=== PATIENT | male | born 1970 | race Asian ===

== ENCOUNTER 2017-02-17 11:41 | Emergency (ER) | payer OTHER ==
[2017-02-17 12:39] LABS: Prothrombin Time 21.2 SEC (12.0-14.7)
[2017-02-17 12:40] LABS: PTT 33.7 SEC (22.9-36.1)
[2017-02-17 12:51] LABS: ALT (SGPT) 24 U/L (8-55); AST (SGOT) 67 U/L (5-34); Acetaminophen Less than 6.0 mcg/mL (10.0-30.0); Alkaline Phosphatase 137 U/L (40-150); Anion Gap 10 mmol/L (10-20); BUN (Urea Nitrogen) 7 mg/dL (8.9-20.6); Bilirubin, Total 7.7 mg/dL (0.2-1.2); Calc. Creatinine Clearance 0 mL/min (70-130); Calcium 8.2 mg/dL (7.8-10.44); Carbon Dioxide 26 mmol/L (22-29); Chloride 104 mmol/L (98-107); Estimated GFR-MDRD Greater than 90; Globulin 4.9 g/dL (2.4-3.5); Lipase 68 U/L (8-78); Magnesium 1.3 mg/dL (1.6-2.6); Protein, Total 7.3 g/dL (6.0-8.3); Salicylate Less than 8.0 mg/dL (15.0-30.0)
[2017-02-17 13:02] LABS: Band 1 % (5-11); Hematocrit 31.8 % (42.0-52.0); Macrocytosis MODERATE=16-30 cells (100X) (0-5/hpf); Mean Platelet Volume 9.2 fL (7.4-10.4); Neutrophil 61 % (42-75); Reactive Lymphocytes 1 % (0-10); Red Blood Cell (RBC) Count 2.83 mill/uL (4.70-6.10); Target Cells SLIGHT = 2-5 cells (100X) (0-1/hpf); White Blood Cell (WBC) Count 5.3 thou/uL (4.8-10.8)
--- NOTE | 2017-02-17 13:27 | RAD ---
FRONTAL RADIOGRAPH CHEST THREE VIEWS LEFT RIBS: DATE: 02/17/17. COMPARISON: None. HISTORY: Fall 2 weeks ago, pain. FINDINGS: Frontal radiograph chest demonstrates no pneumothorax, pleural fluid, focal consolidation, or alveola r edema. Three-view examination of the left ribs demonstrates no acute displaced left-sided rib fracture. IMPRESSION: No radiographic evidence of acute cardiopulmonary disease. No displaced left-sided rib fracture is n oted. POS: [facility]
== END 2017-02-17 14:39 | disposition left against medical advice (07) ==
LOC: SCSER 11:41
DX: K70.31 Alcoholic cirrhosis of liver with ascites (principal); K70.11 Alcoholic hepatitis with ascites; R60.0 Localized edema; R07.81 Pleurodynia; F17.210 Nicotine dependence, cigarettes, uncomplicated; W18.09XA Striking against other object with subsequent fall, initial encounter
CPT/HCPCS: 80053; 80307; 82140; 83690; 83735; 85025; 85610; 85730; 99406

== ENCOUNTER 2017-02-18 11:49 | Inpatient (IN) | payer OTHER ==
[2017-02-18] MEDS ORDERED: ISOVUE-370 76%-LOCM 1 ML ONE (13:13)
[2017-02-18 13:34] LABS: PTT 34.3 SEC (22.9-36.1); Prothrombin Time 21.9 SEC (12.0-14.7)
[2017-02-18 13:41] LABS: Hematocrit 34.3 % (42.0-52.0); Mean Platelet Volume 7.9 fL (7.4-10.4); Red Blood Cell (RBC) Count 2.84 mill/uL (4.70-6.10); White Blood Cell (WBC) Count 5.7 thou/uL (4.8-10.8)
[2017-02-18 13:44] LABS: Lactic Acid - Sepsis 1.5 mmol/L (0.5-2.2)
[2017-02-18 13:50] LABS: ALT (SGPT) 21 U/L (8-55); AST (SGOT) 65 U/L (5-34); Alkaline Phosphatase 155 U/L (40-150); Anion Gap 7 mmol/L (10-20); BUN (Urea Nitrogen) 6 mg/dL (8.9-20.6); Bilirubin, Total 6.7 mg/dL (0.2-1.2); CK (CPK) 141 U/L (30-200); Calc. Creatinine Clearance 0 mL/min (70-130); Calcium 7.9 mg/dL (7.8-10.44); Carbon Dioxide 28 mmol/L (22-29); Chloride 103 mmol/L (98-107); Estimated GFR-MDRD Greater than 90; Globulin 4.9 g/dL (2.4-3.5); Lipase 51 U/L (8-78); Protein, Total 7.2 g/dL (6.0-8.3)
[2017-02-18 13:54] LABS: Troponin I 0.012 ng/mL (< 0.028)
[2017-02-18 13:59] LABS: Band 2 % (5-11); Neutrophil 64 % (42-75)
[2017-02-18] MEDS ORDERED: hydrALAZINE 20 MG/ML VIAL SLOW IVP PRN (14:45)
--- NOTE | 2017-02-18 14:49 | CT ---
CT ABDOMEN AND PELVIS WITH CONTRAST: Technique: Multiple axial tomograms were obtained through the abdomen and pelvis with IV enhancement. History: Ascites. Comparison: None. FINDINGS: Lung bases are clear. Liver is slightly heterogeneous. The liver margins are mildly irregular which suggest changes of cirr hosis. A small low density lesion in the posterior right lobe of the liver measuring approximately 7 mm suggests a small hepatic cyst. There is a more focal area of low attenuation in the left lobe of the liver measuring 2.6 cm. This fo jean marie area of low density is indeterminate. Neoplasm cannot be excluded. Spleen is upper normal size measuring 12 cm. Pancreas is unremarkable. Numerous radiopaque gallstones are seen layering dependently in the gallbladder. There is moderate ascites seen in all quadrants of the abdomen. Adrenal glands and kidneys unremarkable. Small bowel loops normal caliber. Colon is unremarkable. Aorta is normal caliber. Nonspecific paraaortic lymph nodes are seen throughout the abdomen. These ar e increased in number but are nonspecific in size measuring up to 1.0 cm. There is an umbilical hernia noted with hernia sac measured at 3 cm. IMPRESSION: 1. Moderate ascites in all quadrants of the abdomen. 2. Liver is mildly heterogeneous with irregular margins suggesting changes of cirrhosis. 3. There is an ill-defined low density in the left lobe of the liver measuring up to 2.6 cm. Neoplasm is not excluded. This will need further workup. 4. Evidence of a tiny cyst in the posterior right lobe of the liver. 5. Cholelithiasis. 6. Portal hypertension with recanalized venous structures along the course of the umbilical vein. 7. Small umbilical hernia. POS: [facility]
[2017-02-18] MEDS ORDERED: Acetaminophen 325 MG TAB PO PRN (15:48)
[2017-02-18] MEDS ORDERED: Bisacodyl 5 MG TAB PO PRN (15:48)
[2017-02-18] MEDS ORDERED: Ondansetron ODT 4 MG TAB PO PRN (15:48)
[2017-02-18] MEDS ORDERED: Furosemide 20 MG/2 ML VIAL SLOW IVP SCH (16:00)
[2017-02-18 16:15] VITALS: BMI 28.8
[2017-02-18 16:45] LABS: Bilirubin, Direct 4.1 mg/dL (0.1-0.3); Bilirubin, Total 7.1 mg/dL (0.2-1.2); Magnesium 1.3 mg/dL (1.6-2.6); Phosphorus 2.5 mg/dL (2.3-4.7)
--- NOTE | 2017-02-18 16:57 | RAD ---
UPRIGHT PORTABLE CHEST ONE VIEW 02/18/17 HISTORY: 46-year-old with followup ascites, ASE protocol. FINDINGS/IMPRESSION: Heart size is within normal limits. The lungs are clear. No confluent pneumonia, overt edema, or pleu ral effusion. Stable appearance from 02/17/17. POS: [facility]
[2017-02-18 17:00] LABS: Bilirubin Small (Negative); Blood, Urine Negative (Negative); Glucose, Urine (Dipstick) Negative (Negative); Ketone, Urine Negative (Negative); Nitrite Negative (Negative); Protein, Urine (Dipstick) Negative (Neg-Trace)
[2017-02-18 17:04] LABS: Bacteria/HPF None Seen HPF (None Seen); Hyaline Casts/LPF 0-3 HYALINE CAST LPF (0-3 Hyaline); RBC/HPF 0-3 HPF (0-3); Squamous Epithelial None Seen HPF (0-3); WBC/HPF None Seen HPF (0-3)
[2017-02-18] MEDS ORDERED: Magnesium Oxide 400 MG TAB PO SCH (18:30)
--- NOTE | 2017-02-18 19:12 | PDOC.EVN ---
Event Note - Event Note Event Note: Attedning H&P. I personally evaluated the patient and discussed the management with Dr. Rojas. I have reviewed the written H&P and it is repeated by me. I agree with the History, Examination, Assessment and Plan documented above with any addition or exceptions noted below. Clinical diagnosis of alcoholic liver cirrhosis. With elevated INR, will give Vit K, and plan for diagnostic and therapeutic paracentesis with IR tomorrow. Patient reports a mainly alcohol based diet. [employer] Mate to see tomorrow. 2 days since last alcohol drink, At risk for CT and seizure. Prophylactic benzo regimen ordered. Appreciate GI input for care plan. No clinical suspicion of SBP. Patietn ahs elevated BP. PRN meds ordered. Mr Bosch and his concur with plan.
[2017-02-18] MEDS: Famotidine 20 MG TAB PO SCH (19:51)
--- NOTE | 2017-02-18 22:06 | HP-2 ---
CODE STATUS: FULL. PRIMARY CARE PHYSICIAN: Marla martines. ATTENDING: Paco Begum M.D. RESIDENT: Ernesto Rojas MD CHIEF COMPLAINT: Edema. HISTORY OF PRESENT ILLNESS: This is a 46-year-old male with no past medical history, presents for edema. States he has had at least 15-pound weight gain in the last 3 weeks. He notes at least a 2-year history of yellow sclerae. He also notes some swelling in his abdomen and his legs. He has no pain at all. His has noticed loss of muscle mass and abdominal distention. The patient has not seen a doctor regularly. The patient notes he has had a fall that prompted his ED visit yesterday and refused to have admission at that time and then thought better of it and came back in for admission today. He has no other complaints at this time. In the ER, he was given nothing, just had lab tests drawn. PAST MEDICAL HISTORY: Shows alcohol abuse with suspected alcohol cirrhosis and glaucoma. PAST SURGICAL HISTORY: None. ALLERGIES: No known drug allergies. MEDICATIONS: None. FAMILY HISTORY: Alcoholism in his father. SOCIAL HISTORY: Currently he is half a pack a day smoker for at least 25 years. He is also an everyday drinker. He drinks 7-8 beers daily. He has been doing that for at least 20 years. He denies any drug use. REVIEW OF SYSTEMS: General: No fevers or chills. He does admit to a 15-pound weight gain in the last 3 weeks. One episode of night sweats 6 months ago. No fatigue. Eyes: He has had some vision changes. He does have a diagnosis of glaucoma. ENT: No nasal congestion, rhinorrhea, or sore throat. Respiratory: No cough, congestion, shortness of breath, or exercise intolerance. Cardiovascular: No chest pain or palpitation. He does admit to edema, especially in his abdomen and lower extremities. Gastrointestinal: No nausea, vomiting, diarrhea, or constipation. He does admit abdominal pain, more of a pressure type pain from the abdominal distention. Genitourinary: Denies incontinence, dysuria, polyuria, or discharge. Skin: Denies any rashes. He does admit to jaundice and to the lesions especially on his lower extremities that they have changed color as far as being more dark. Musculoskeletal: No pain, tenderness, stiffness, or swelling to any joints. Neurologic: No weakness, numbness, syncope, or seizure. Psychiatric: No anxiety or depression. PHYSICAL EXAMINATION: VITAL SIGNS: BP was 179/110, pulse is 82, respirations 16, temperature max 98.5 , pulse oximetry 97% on room air, current weight is 99 kg. GENERAL: He is alert and oriented x4. He is appropriately interactive. EYES: PERRLA. He did have scleral icterus. ENT: Tympanic membranes pearly dow without bulging or erythema. Nasal mucosa within normal limits. He did have sublingual jaundice present in his oropharynx. NECK: Supple. No lymphadenopathy, no thyromegaly. He does have a hepatojugular reflex was positive. CARDIOVASCULAR: Regular rate and rhythm. No murmurs, no gallops. Radial pulses were present. Pedal pulses were not able to be felt from his edema. RESPIRATORY: Normal effort, no retractions. CHEST: Lungs clear to auscultation bilaterally. SKIN: Warm and dry. No cyanosis. He does have bilateral lower extremity lesions, worse on his left than his right, looks like venous dermatitis changes. ABDOMEN: Soft, nontender to palpation. Bowel sounds are present x4. There was significant distention present on exam. EXTREMITIES: No clubbing or cyanosis. He does have pitting edema 2+ up to his knees. MUSCULOSKELETAL: Structure, tone, muscle strength, and range of motion within normal limits. NEUROLOGIC: No focal neurologic deficits. Sensation within normal limits. Cranial nerves II through XII grossly intact. GCS of 15. PSYCHIATRIC: Appropriate. LABORATORY DATA: He had white blood cell 5.7, platelet count 82, hemoglobin 11.3, hematocrit 34.3, MCV 121. CK 141, CK-MB 2.4, troponin I of 0.012. Sodium was 134, potassium 4.0, chloride 103, bicarbonate 28, BUN 6, creatinine 0.68, glucose 99, calcium 7.9, total protein 7.2, albumin 2.3, total bilirubin 6.7, AST was 65, ALT 21, alkaline phosphatase 155. Lactate was 1.5. PTT 34.3, PT was 21.9, INR was 1.8. Lipase was 51. His EKG showed normal sinus rhythm with a prolonged QTC of 499. Chest x-ray showed no acute pulmonary process or rib fractures. He did also have a CT scan of his abdomen that showed moderate ascites in all quadrants of the abdomen, liver is mildly heterogeneous with irregular margins suggesting changes of cirrhosis. There is an ill-defined low density in the left lobe of the liver measuring up to 2.6 cm. Neoplasm is not excluded. Evidence of tiny cysts in the posterior right lobe of the liver, cholelithiasis, portal hypertension with recanalized venous structures along the course of the umbilical vein and a small umbilical hernia. ASSESSMENT AND PLAN: A 46-year-old male presents with: 1. Suspected cirrhosis, history of alcoholism. We are going to consider paracentesis and albumin repletion. We will get a GI consult with Dr. Jordan. We appreciate his recommendations. We are going to consider diuresis with Lasix , strict I's and O's, get daily weights. We also have HIV, hepatitis panel, RPR , magnesium, phosphate, and iron studies pending. 2. Pancytopenia secondary to #1. Same as above. 3. Glaucoma. We will consider an Ophthalmology consult or continue his home medications if he is taking any. 4. Undiagnosed hypertension. We will put him on hydralazine p.r.n. for systolic blood pressures greater than 180 and then we will consider long-term therapy once we know what the definitive treatment option is for him. 5. Alcohol abuse. We will put him on the ZEENAT protocol going forward and monitor for signs and symptoms of withdrawal or delirium tremens. Disposition and length of hospital stay will be medical and 2 midnights. Symptomatic medications will be provided. History and physical exam as well as management has been discussed with Dr. Rodríguez. LILLIAM
--- NOTE | 2017-02-19 02:23 | CON ---
DATE OF CONSULTATION: 02/18/2017 REASON FOR CONSULTATION: Ascites, new-onset cirrhosis. CONSULTING PHYSICIAN: Ernesto Rojas MD HISTORY OF PRESENT ILLNESS: Patient is a 46-year-old male with past medical history of glaucoma, presenting with complaint of increased abdominal distention and lower extremity edema. He states that approximately 3 months ago , he began to have increased pedal edema as well as progressively worsening of abdominal distention, this has progressively worsened over the same time. To now include significant abdominal distention along with significant lower extremity edema. He did say that he fell down last week while active prompting admission to see his local primary care physician and during his evaluation was noted to have significantly deranged labs as well as the physical stigmata concerning for cirrhosis. At which point, he was admitted to [facility] for further evaluation. At the current point in time, he also endorses easy bleeding when brushing his teeth as well as intermittently having small pools of blood seen on his pillow upon waking in the morning. He currently denies any nausea, vomiting, fevers, chills, shortness of breath, odynophagia, dysphagia, hematemesis, hematochezia, melena, or encephalopathy. OUTPATIENT MEDICATIONS: None. INPATIENT MEDICATIONS: Reviewed. PAST MEDICAL HISTORY: As per HPI. PAST SURGICAL HISTORY: None. FAMILY HISTORY: Liver disease (father), heart disease, ovarian cancer (mother). SOCIAL HISTORY: Smokes approximately one half pack per day, drinks 7-8 of 16 ounce beers daily. Denies any illicit drug use. PHYSICAL EXAMINATION: VITAL SIGNS: Temperature 98.7, pulse 95, blood pressure 186/101, respiratory rate 16, satting 98% on room air. GENERAL: No acute distress, alert and oriented x4. NECK: Supple. No discernible JVD. CARDIOVASCULAR: Regular rate and rhythm with no discernible murmurs, gallops, or rubs. RESPIRATORY: Clear to auscultation bilaterally with no discernible wheezes or rales. ABDOMEN: Normoactive bowel sounds. Significant abdominal distention that is not taut to palpation. No tenderness to palpation. Umbilical hernia noted with no ulceration of the hernia itself. No caput medusae seen. EXTREMITIES: 2+ pitting edema noted up to the knees bilaterally. No cyanosis or clubbing. NEUROLOGIC: No focal motor or sensory deficit noted. LABORATORY DATA: CBC with white count of 5.7, hemoglobin of 11.3, hematocrit 34.3, platelets 82. Chemistry: Sodium 134, potassium 4.0, chloride 103, carbon dioxide 28, BUN 6, creatinine 0.68, glucose 99. INR 1.8. AST 65, ALT 21 , alkaline phosphatase 155, total bilirubin 6.7, albumin 2.3. APRI score 2.0. FIB-4 score 7.61, MELD score 23. IMAGING: Chest x-ray obtained on 02/18/2017 showing no acute cardiopulmonary abnormalities. CT abdomen and pelvis obtained on 02/18/2017 showing a 7-mm hepatic cyst in the posterior right lobe. Also a 2.6-cm area of hypoattenuation in the left lobe of the liver. Cholelithiasis also noted along with irregular margins of the liver suggesting cirrhosis. Moderate ascites also seen. ASSESSMENT AND PLAN: Patient is a 46-year-old gentleman with a past medical history of glaucoma presenting with increased lower extremity edema, new formation of ascites, and imaging consistent with liver cirrhosis. Liver cirrhosis patient is presenting with a diagnosis of cirrhosis based on cirrhotic morphology on imaging, presence of ascites on physical examination and imaging, lower extremity edema, and thrombocytopenia along with elevated APRI, FIB-4, and MELD scores consistent with a diagnosis of cirrhosis. Currently with decompensated disease with a MELD score of 23 and Keli Avila classification C, indicative of significant liver dysfunction. At this time, the most likely etiology for the diagnosis of cirrhosis is chronic alcohol abuse, although other etiologies have not been ruled out at this time. No stated history of encephalopathy, variceal bleeding or SBP. However, on CT obtained today, he does have two lesions within the liver, one consistent with a simple hepatic cyst, but the other a 2.6-cm area of hypoattenuation within the left lobe of the liver concerning for possible hepatocellular carcinoma and will need further characterization. No EGDs in the system diagnostic for presence of esophageal varices. PLAN: 1. Would obtain diagnostic paracentesis to evaluate for SAAG ratio along with possible SBP. Will need ascitic albumin, total protein, and culture/gram stain 2. Transfer patient from Lasix to spironolactone 50 mg daily for diuresis. 3. Strongly encourage alcohol cessation with placing patient on CIWA protocol for possible withdrawal from alcohol. 4. Would obtain daily CBC, INR, and neuro checks for evaluation of hepatic decompensation. 5. Would obtain a CT three-phase examination for further characterization of the left hepatic lobe liver lesion. 6. Patient will need an EGD as an outpatient for evaluation of possible esophageal varices. 7. Would place patient on a low-sodium, high-protein diet. MTDD
[2017-02-19 04:40] LABS: Prothrombin Time 23.2 SEC (12.0-14.7)
[2017-02-19 05:00] LABS: ALT (SGPT) 19 U/L (8-55); AST (SGOT) 55 U/L (5-34); Alkaline Phosphatase 116 U/L (40-150); Anion Gap 9 mmol/L (10-20); BUN (Urea Nitrogen) 6 mg/dL (8.9-20.6); Calc. Creatinine Clearance 224 mL/min (70-130); Calcium 7.6 mg/dL (7.8-10.44); Carbon Dioxide 24 mmol/L (22-29); Chloride 106 mmol/L (98-107); Estimated GFR-MDRD Greater than 90; Globulin 4.3 g/dL (2.4-3.5); Protein, Total 6.3 g/dL (6.0-8.3)
[2017-02-19 05:03] LABS: Band 3 % (5-11); Hematocrit 31.5 % (42.0-52.0); Macrocytosis MODERATE=16-30 cells (100X) (0-5/hpf); Mean Platelet Volume 7.6 fL (7.4-10.4); Neutrophil 54 % (42-75); Red Blood Cell (RBC) Count 2.62 mill/uL (4.70-6.10); White Blood Cell (WBC) Count 5.8 thou/uL (4.8-10.8)
--- NOTE | 2017-02-19 06:04 | PDOC.FM ---
- Objective Vital Signs & Weight: Vital Signs (12 hours) Temp Pulse Resp BP Pulse Ox 02/19/17 00:00 99.5 F 83 16 161/87 H 98 02/18/17 20:00 98.7 F 95 16 147/84 H 98 I&O: 02/17/17 02/18/17 02/19/17 06:59 06:59 06:59 Intake Total 840 Output Total 950 Balance -110 Result Diagrams: 02/19/17 04:10 02/19/17 04:10 Dx/Plan (1) Alcoholic cirrhosis of liver with ascites Code(s): K70.31 - ALCOHOLIC CIRRHOSIS OF LIVER WITH ASCITES Status: Acute Plan: -Current MELD score 23 -Child-Avila classification of C -Dr. Morataya, GI consulted and appreciate his recs -Await findings from Paracentesis -Consider [address] scan to evaluate liver mass -Will need EGD as outpatient -Will trend labs -Will continue Diuresis with Spironolactone (2) Alcohol abuse Code(s): F10.10 - ALCOHOL ABUSE, UNCOMPLICATED Status: Acute Plan: -20+ years of abuse -Counseled on quitting -Placed on ASE protocol for withdrawal. - Plan Plan: Will follow GI recs
[2017-02-19] MEDS: Spironolactone 25 MG TAB PO SCH ×2 (08:11→10:47)
[2017-02-19] MEDS: Famotidine 20 MG TAB PO SCH ×3 (08:12→20:48)
[2017-02-19] MEDS ORDERED: Lidocaine 1% PF 5 ML VIAL ONE (09:44)
--- NOTE | 2017-02-19 11:30 | ADD-PRG ---
DATE OF SERVICE: 02/19/2017 This is an addendum to the note of Dr. Ernesto Rojas. Mr. Bosch is a 46-year-old patient with no prior history of significant illnesses. He was admitted w ith ascites, peripheral edema and a stigmata of cirrhosis. Initial history and lab findings consiste nt with probable alcoholic cirrhosis. We will have paracentesis performed by IR later today to deter mine the nature of the ascitic fluid as well as to rule out SBP. We have reinstituted treatments wit h spironolactone and I suggested that we perhaps later add Lasix. We have also consulted Dr. Rafia sepulveda the GI Service and appreciate his recommendations.
--- NOTE | 2017-02-19 11:53 | ULT ---
ULTRASOUND GUIDED PARACENTESIS: Date: 02-19-17 History: New onset ascites, probable cirrhosis. Technique: After informed consent was obtained, the patient was placed on the sonography table in the supine pos ition. Limited sonographic evaluation of the abdomen was performed. Appropriate access site was local ized in the mid axillary line right upper quadrant. The area was marked and then meticulously prepped and draped in the usual sterile fashion. Skin and subcutaneous tissues were infiltrated with buffere d 1% Lidocaine for local anesthesia. Small skin incision was made. Utilizing concurrent real-time ult rasound guidance, a 19 gauge Panizoneh needle with 5 Mohawk sheath was advanced into the abdomen. After wi thdraw of fluid, the sheath was advanced and needle was removed. Approximately 3550 ml of cloudy ivania ge/yellow fluid was aspirated. The sheath was removed and hemostasis was achieved with direct pressur e. Dry sterile dressing was placed. The patient tolerated the procedure well and without immediate co mplication. Patient was transported back to his hospital room in stable condition. IMPRESSION: Technically successful ultrasound guided paracentesis. POS: [facility]
--- NOTE | 2017-02-19 21:03 | PRG ---
DATE OF SERVICE: 02/19/2017 REASON FOR CONSULTATION: Ascites, new onset cirrhosis. SUBJECTIVE: Overnight, the patient without any problems or complaints. He underwent paracentesis this morning with approximately 3550 mL of yellow cloudy fluid returned with no periprocedural complications at the current time. He notes that his abdomen feels improved when compared to previous. He denies any nausea, vomiting, fever, chills, abdominal pain, diarrhea, constipation, encephalopathy, odynophagia, dysphagia. INPATIENT MEDICATIONS: Reviewed. PHYSICAL EXAMINATION: VITAL SIGNS: Temperature 97.6, pulse 79, blood pressure 157/82, respiratory rate 20, satting 98% on room air. GENERAL: No acute distress, alert and oriented x4. NECK: Supple. No discernible JVD. CARDIOVASCULAR: Regular rate and rhythm with no discernible murmurs, gallops or rubs. RESPIRATORY: Clear to auscultation bilaterally with no discernible wheezes or rales. ABDOMEN: Normoactive bowel sounds. Moderate to severe abdominal distention that is soft to palpation and not tense. No tenderness to palpation. Umbilical hernia noted with no ulceration. The hernia itself, but improved from previous. No caput medusae seen. EXTREMITIES: 1+/2+ pitting edema noted bilaterally to the knee. MUSCULOSKELETAL: No cyanosis or clubbing. NEUROLOGIC: No focal motor or sensory deficit noted. LABORATORY DATA: CBC with white count of 5.8, hemoglobin 10.5, hematocrit 31.5 , platelets 80. Chemistry with sodium 135, potassium 3.5, chloride 106, carbon dioxide 24, BUN 6, creatinine 0.59, glucose 87, AST 55, ALT 19, alkaline phosphatase 116, total bilirubin 7.0, albumin 2.0. INR 2.0. Iron 69, ferritin 268, TIBC 194, total protein from ascitic fluid 1.1. Hepatitis B, hepatitis C and HIV all negative. IMAGING: No current studies available for review. ASSESSMENT AND PLAN: The patient is a 46-year-old gentleman with a past medical history of glaucoma, presenting with increased lower extremity edema, new formation of ascites, and imaging consistent with liver cirrhosis. Liver cirrhosis The patient is presenting with a diagnosis of cirrhosis based on cirrhotic morphology on imaging, presence of ascites, thrombocytopenia, and elevated APRI , FIB-4, and MELD scores is consistent with a diagnosis of cirrhosis. Currently with decompensated disease with a MELD score of 24 (stable) and Child- Avila classification C indicative of significant liver dysfunction. At this time , most likely etiology of the diagnosis of cirrhosis is chronic alcohol abuse with negative labs for chronic viral hepatitis, hemochromatosis. No stated history of encephalopathy, variceal bleeding, or SBP; however, he does have a 2.6 cm area of hypoattenuation within the left lobe of the liver concerning for possible hepatocellular carcinoma and will need to be further characterized with multiphasis imaging. PLAN: 1. Continue to follow up with the primary inpatient team. 2. Continue spironolactone 50 mg daily for diuresis and assess for nephrotoxic effect. 3. Strongly encouraged continued alcohol cessation with continuation of CIWA protocol for possible alcohol withdrawal. 4. We would obtain daily CBC, INR, and neuro checks for evaluation of hepatic decompensation. 5. We would consider a CT three phase examination for further characterization of the left hepatic lobe lesion. Will order AFP for possible HCC. 6. The patient will need an EGD as an outpatient for evaluation of possible esophageal varices. 7. Continue low-sodium, high-protein diet (cirrhotic diet). 8. We will obtain ceruloplasmin for possible Abilio disease to rule out other underlying liver dysfunction. MTDD
[2017-02-20 05:07] LABS: ALT (SGPT) 17 U/L (8-55); AST (SGOT) 48 U/L (5-34); Alkaline Phosphatase 125 U/L (40-150); Anion Gap 9 mmol/L (10-20); BUN (Urea Nitrogen) 6 mg/dL (8.9-20.6); Bilirubin, Total 5.7 mg/dL (0.2-1.2); Calc. Creatinine Clearance 216 mL/min (70-130); Calcium 7.8 mg/dL (7.8-10.44); Carbon Dioxide 23 mmol/L (22-29); Chloride 106 mmol/L (98-107); Estimated GFR-MDRD Greater than 90; Globulin 4.3 g/dL (2.4-3.5); Protein, Total 6.3 g/dL (6.0-8.3)
[2017-02-20 05:24] LABS: Band 3 % (5-11); Hematocrit 32.4 % (42.0-52.0); Mean Platelet Volume 7.7 fL (7.4-10.4); Neutrophil 58 % (42-75); Red Blood Cell (RBC) Count 2.69 mill/uL (4.70-6.10); White Blood Cell (WBC) Count 6.3 thou/uL (4.8-10.8)
--- NOTE | 2017-02-20 06:13 | PDOC.FM ---
- Subjective Subjective: Patient is feeling better. No acute events overnight. Patient states he feels his abdomen is signficantly improved and his legs are not as swollen as they were previously. He does note that he has urinated a lot more than his normal. He states he needs to be discharged today and that Dr. Morataya was in agreement with that. No other complaints at this time. - Objective Vital Signs & Weight: Vital Signs (12 hours) Temp Pulse Resp BP BP Pulse Ox 02/20/17 04:00 99.1 F 69 18 170/84 H 97 02/19/17 20:00 99.3 F 82 18 132/67 98 I&O: 02/18/17 02/19/17 02/20/17 06:59 06:59 06:59 Intake Total 840 1230 Output Total 950 3550 Balance -110 -2320 Result Diagrams: 02/20/17 04:08 02/20/17 04:09 Phys Exam - Physical Examination HEENT: moist MMs Neck: no nodes Respiratory: no wheezing, clear to auscultation bilateral Cardiovascular: RRR, no significant murmur Gastrointestinal: soft, non-tender, positive bowel sounds Distention significantly improved from yesterday Musculoskeletal: pulses present Very minimal edema present. Significantly improved from yesterday Neurological: non-focal, normal sensation, moves all 4 limbs Lymphatic: no nodes Psychiatric: normal affect, A&O x 3 Skin: no rash Dx/Plan (1) Alcoholic cirrhosis of liver with ascites Code(s): K70.31 - ALCOHOLIC CIRRHOSIS OF LIVER WITH ASCITES Status: Acute Plan: -Current MELD score 23 -Child-Avila classification of C -Dr. Morataya, GI consulted and appreciate his recs -Paracentesis yielded 3550 ml -Consider [address] scan to evaluate liver mass -Will need EGD as outpatient -Will trend labs -Also getting alpha fetoprotein, ceruloplasmin -Will continue Diuresis with Spironolactone (2) Alcohol abuse Code(s): F10.10 - ALCOHOL ABUSE, UNCOMPLICATED Status: Acute Plan: -20+ years of abuse -Counseled on quitting -Placed on ASE protocol for withdrawal. - Plan Plan: Patient can be likely discharged home today with close follow up with PCP and GI.
[2017-02-20] MEDS: Spironolactone 25 MG TAB PO SCH (09:00)
[2017-02-20] MEDS: Famotidine 20 MG TAB PO SCH (09:00)
--- NOTE | 2017-02-20 10:40 | PRG ---
DATE OF SERVICE: 02/20/2017 REASON FOR CONSULTATION: Ascites, new onset cirrhosis. SUBJECTIVE: Overnight, the patient is without any problems or complaints. He notes that his abdomen feels improved when compared to previous with decreased abdominal distention. He does continue to have mild lower extremity edema. No difficulties taking medication as an inpatient. He denies any nausea, vomiting , fevers, chills, abdominal pain, diarrhea, constipation, encephalopathy, odynophagia or dysphagia. INPATIENT MEDICATIONS: Reviewed. LABORATORY DATA: CBC with a white blood cell count of 6.3, hemoglobin 10.6, hematocrit 32.4, platelets 88. Chemistry with sodium 134, potassium 3.7, chloride 106, carbon dioxide 23, BUN 6, creatinine 0.61, glucose 87, AST 48, ALT 17, alkaline phosphatase 125, total bilirubin 5.7. Blood type B positive. IMAGING: No current studies available for review. ASSESSMENT AND PLAN: The patient is a 46-year-old gentleman with a past medical history of glaucoma, presenting with new onset liver cirrhosis. Liver cirrhosis. The patient is presenting with a diagnosis of cirrhosis based on cirrhotic morphology on imaging, presence of ascites, thrombocytopenia, and elevated noninvasive markers with a MELD score consistent with a diagnosis of cirrhosis. Currently, with decompensated disease with a MELD score of 24 and Child-Avila classification C indicative of significant liver dysfunction. At this time, the most likely etiology of the diagnosis of cirrhosis is chronic alcohol abuse with labs negative for chronic viral hepatitis and hemochromatosis. He does not have any stated history of encephalopathy, variceal bleeding or SBP. He does have a 2.6 cm area of hypoattenuation within the left lobe of the liver concerning for possible HCC and will need to be further characterized at a later date. At the current time, he is doing well without any further problems or complaints with the rest of his liver workup being able to be achieved as an outpatient. PLAN: 1. Continue Spironolactone 50 mg daily for diuresis and continue as outpatient. 2. Can place the patient on Librium for possible alcohol withdrawal (if discharged) with a short taper over the next 3-4 days. 3. We will obtain a 3-phase CT exam after discharge. We will also follow up on AFP for possible HCC. 4. The patient will need an EGD as an outpatient for evaluation of possible esophageal varices. 5. Continue low sodium, high protein diet. 6. The patient to follow up in the GI Clinic in approximately 3-4 weeks. Please call [phone] to help schedule appointment. 7. The patient can be discharged from a GI standpoint with follow up in the outpatient clinic. We will sign off at this time. Please call with any additional questions. LILLIAM
[2017-02-20 11:37] VITALS: BP 129/81; TEMP 97.3
--- NOTE | 2017-02-20 11:53 | ADD-PRG ---
DATE OF SERVICE: 02/20/2017 This is an addendum to the note of Dr. Ernesto Rojas. Mr. Bosch is looking and feeling much better. He will be discharged today to follow up with Dr. Colette reich of GI Service. He will be given a prescription for Librium and instructed to take this should he become shaky or anxious. He is on spironolactone and we will add amlodipine for better blood pressur e control. He will likely be a candidate for liver transplant, but I will let him discuss this with his GI doctor. We had another long discussion regarding the absolute need for alcoholic cessation.
--- NOTE | 2017-02-20 13:00 | DIS-2 ---
DATE OF ADMISSION: 02/18/2017 DATE OF DISCHARGE: 02/20/2017 RESIDENT: Dr. Ernesto Rojas ADMITTING ATTENDING: Dr. Paco Begum DISCHARGE ATTENDING: Dr. Lobito Moura CONSULTATIONS: Consults were with a walking program and with Gastroenterology with Dr. Morataya. PROCEDURES: The patient did undergo an abdominal pelvis CT on 02/18/2017 that showed a moderate amount of ascites in all quadrants of the abdomen. Liver is mildly heterogeneous with an irregular margins suggesting changes of cirrhosis. Also, there is an ill-defined low density in the left lobe of the liver measuring up to 2.6 cm. Neoplasm is not excluded. Evidence of a tiny cyst in the posterior right lobe of the liver, cholelithiasis and portal hypertension with recanalized venous structures along the course of the umbilical vein as well as a small umbilical hernia. Chest x-ray on 02/18/2017 that showed heart size within normal limits. Lungs are clear. No confluent pneumonia, overt edema, or pleural effusion, stable from previous. Ultrasound guided paracentesis that yielded approximately 3550 mL of cloudy orange yellow fluid that was aspirated. The patient tolerated the procedure well and had no complications. PRIMARY DIAGNOSIS: 1. Alcoholic liver cirrhosis. 2. Alcohol abuse. 3. Hypertension. DISCHARGE MEDICATIONS: 1. Spironolactone 50 mg daily. 2. Amlodipine 5 mg daily. 3. Chlordiazepoxide 25 mg. DISCONTINUED MEDICATIONS: None. HISTORY OF PRESENT ILLNESS AND HOSPITAL COURSE: This is a 46-year-old male with no past medical history that presents for edema. He states that he has had at least 15 pound weight gain in the last 3 weeks. He notes at least a 2- year history of yellow sclerae. He also notes some swelling in his abdomen and his legs. He has had no pain at all during this time. His has noticed some loss of muscle mass and abdominal distention. The patient has not seen a doctor regularly. The patient notes he has had a fall that prompted his ED visit yesterday and has refused to have admission at that time and then thought better of it and came back in for admission today. He has no other complaints at this time. In the ER, he was given nothing and just had lab tests drawn. During this hospitalization, the patient was found to be in suspected cirrhosis with ascites. The patient was then consulted to Gastroenterology and Dr. Morataya was involved in his care. We appreciate his recommendations. Dr. Morataya recommended that he get an ultrasound guided paracentesis because of his advanced disease. The paracentesis yielded about 3.5 liters of fluid off of his belly and he felt great from that time. The patient was also given Lasix for diuresis and spironolactone with a diuresis of nearly 2 liters. The patient had some notable lab values during this hospitalization that include a hemoglobin that ranged from 10.6-11.3 and MCV of 121, an INR of 1.8-2.0. Calcium ranged from 7.6-7.8, a ferritin of 268.68, vitamin B12 of 806, an alpha fetoprotein of 5.0, a total bilirubin of that ranged from 5.7 to 7.1 and it was 5.7 on the day of discharge. His direct bilirubin was 4.1. The patient was evaluated for spontaneous bacterial peritonitis and has no symptoms at this time. The patient was diuresed and had his paracentesis and that relieved a lot of his symptoms of the pressure from the abdominal distention. The patient was also diagnosed with hypertension during this visit. His blood pressure was ranging from 186/100 to as low as 139/80 and so he was initiated on amlodipine at that time. The patient will be having close follow up with Dr. Morataya for his liver cirrhosis and was recommended to start on spironolactone for outpatient therapy for diuresis. The patient will also be establishing care with [facility] in the next week to coordinate all of his primary care needs. The patient otherwise felt great after the diuresis and felt like he was ready to go home with outpatient followup. The patient did have a MELD score of 23 during this time and a Child-Avila classification of C which shows that he has a pretty dismal prognosis without acute interventions in the next 3-6 months. The patient will likely be set up through Dr. Morataya for any other interventions from his cirrhosis standpoint. It was stressed heavily that he can no longer drink alcohol at all. He absolutely needs to adhere to the treatment regimen and adhere to any medical recommendations in the future. Otherwise, the patient had no other complications during his hospitalization and was discharged in the appropriate condition. DISPOSITION: Stable. DISCHARGE INSTRUCTIONS: 1. Location: He will be discharged home into his own care. 2. Diet: Diet will be a heart healthy diet. 3. Activity: Activity will be as tolerated with no restrictions. 4. Followup: Follow up will be with Dr. Morataya with Gastroenterology in 2 weeks as well as [facility] within the next week. We wish him the best of luck, hope that he can stay off of any more alcohol use and that we can help him to control his disease going forward. We wish him the best of luck. LILLIAM
[2017-02-20 15:36] LABS: Folate,Hemolysate 441.6 ng/mL (Not Estab.); RBC Folate Test Component 1425 ng/mL (>498)
[2017-02-21 15:21] LABS: Ceruloplasmin 22.1 mg/dL (16.0-31.0)
== END 2017-02-20 12:34 | disposition home or self-care (01) | DRG 433 ==
LOC: ERS 11:49 → EDSTATUS 12:13 → T4-A 13:45
PROVIDERS: ADMIT Family Medicine; ATTEND Family Medicine
PROC: 0W9G3ZZ Drainage of Peritoneal Cavity, Percutaneous Approach (ICD-10-PCS; principal; 2017-02-19)
DX: K70.31 Alcoholic cirrhosis of liver with ascites (principal); D61.818 Other pancytopenia; F10.10 Alcohol abuse, uncomplicated; H40.9 Unspecified glaucoma; I10 Essential (primary) hypertension; F17.210 Nicotine dependence, cigarettes, uncomplicated; M62.50 Muscle wasting and atrophy, not elsewhere classified, unspecified site; Z91.81 History of falling
CPT/HCPCS: 36415; 49083; 71010; 74177; 80053; 80307; 81001; 82042; 82103; 82105; 82140; 82247; 82248; 82390; 82550; 82553; 82607; 82728; 82747; 83540; 83550; 83605; 83690; 83735; 84100; 84157; 84484; 85007; 85025; 85027; 85610; 85730; 86704; 86706; 86708; 86780; 86803; 86900; 86901; 87070; 87077; 87205; 87340; 87389; 93005; 99406; J0360; J1940; J2001

== ENCOUNTER 2017-03-18 07:11 | Day surgery (SDC) | payer OTHER ==
[2017-03-18 07:44] LABS: #Basophils 0.1 thou/uL (0.0-0.2); #Eosinphils 1.2 thou/uL (0.0-0.7); #Monocytes 0.8 thou/uL (0.11-0.59); %Basophils 1.1 % (0.0-1.0); %Eosinophils 17.5 % (0.0-10.0); %Lymphocytes 27.7 % (21.0-51.0); %Monocytes 11.4 % (0.0-10.0); %Neutrophils 42.3 % (42.0-75.0); Hemoglobin 10.7 g/dL (14.0-18.0); Mean Corpuscular HGB CONC 33.1 g/dL (32.0-36.0); Mean Corpuscular Hemoglobin 39.5 pg (27.0-31.0); Mean Platelet Volume 7.2 fL (7.4-10.4); Platelet Count 102 thou/uL (130-400); White Blood Cell (WBC) Count 7.1 thou/uL (4.8-10.8)
[2017-03-18 07:48] LABS: Prothrombin Time 23.3 SEC (12.0-14.7)
[2017-03-18 07:49] LABS: PTT 39.6 SEC (22.9-36.1)
[2017-03-18] MEDS ORDERED: Sodium Bicarbonate 2.4 MEQ/5 ML ONE (07:50)
[2017-03-18 08:02] LABS: MDiff Complete? YES; Macrocytosis MODERATE=16-30 cells (100X) (0-5/hpf); PLT Morphology Comment Appears Decreased
[2017-03-18 09:19] VITALS: BP 134/85; TEMP 98.4; BMI 28.6
--- NOTE | 2017-03-18 10:24 | ULT ---
ULTRASOUND GUIDED PARACENTESIS: Date: 03/18/17 HISTORY: Recurrent ascites. TECHNIQUE: After informed consent was obtained, the patient was placed on the sonography table in supine positio n. Limited sonographic evaluation of the abdomen was performed. An area in the mid axillary line righ t mid abdomen was marked and then meticulously prepped and draped in the usual sterile fashion. The skin and subcutaneous tissues were infiltrated with buffered 1% lidocaine for local anesthesia at the intended puncture site. Small skin incision was made. Utilizing concurrent real-time ultrasound guidance, a 19 gauge Yueh needle with 5 Georgian sheath was advanced into the abdomen. After the return of fluid, the sheath was advanced and the needle was removed. Approximately 4700 mL of cloudy, yello w-colored fluid was aspirated. Introducer sheath was removed and hemostasis was achieved with direct pressure. The patient tolerated the procedure well and without immediate complication. The patient wa s briefly monitored in the radiology department prior to discharge. IMPRESSION: Technically successful ultrasound guided paracentesis. POS: [facility]
== END 2017-03-18 08:55 | disposition home or self-care (01) ==
LOC: ULT 07:11
PROVIDERS: ATTEND Internal Medicine Gastroenterology
PROC: BW40ZZZ Ultrasonography of Abdomen (ICD-10-PCS; principal; 2017-03-18)
PROC: 0W9G3ZZ Drainage of Peritoneal Cavity, Percutaneous Approach (ICD-10-PCS; principal; 2017-03-18)
DX: R18.8 Other ascites (principal); K74.60 Unspecified cirrhosis of liver; I10 Essential (primary) hypertension; Z79.899 Other long term (current) drug therapy
CPT/HCPCS: 36415; 49083; 85025; 85610; 85730

== ENCOUNTER 2017-05-08 11:15 | Outpatient (CLI) | payer OTHER ==
[2017-05-08 12:52] LABS: ALT (SGPT) 12 U/L (8-55); AST (SGOT) 29 U/L (5-34); Albumin 2.1 g/dL (3.5-5.0); Alkaline Phosphatase 156 U/L (40-150); Anion Gap 8 mmol/L (10-20); BUN (Urea Nitrogen) 7 mg/dL (8.9-20.6); Bilirubin, Total 3.8 mg/dL (0.2-1.2); Calc. Creatinine Clearance 0 mL/min (70-130); Calcium 8.3 mg/dL (7.8-10.44); Carbon Dioxide 22 mmol/L (22-29); Chloride 109 mmol/L (98-107); Estimated GFR-MDRD Greater than 90; Glucose 94 mg/dL (70-105); Potassium 4.2 mmol/L (3.5-5.1); Protein, Total 7.1 g/dL (6.0-8.3); Sodium 135 mmol/L (136-145)
[2017-05-08 12:55] LABS: INR-International Normal Ratio 1.8; PTT 39.9 SEC (22.9-36.1); Prothrombin Time 21.3 SEC (12.0-14.7)
[2017-05-08 13:30] LABS: Band 3 % (5-11); Eosinophils 6 % (0-10); Hemoglobin 10.2 g/dL (14.0-18.0); Lymphocytes 8 % (21-51); MDiff Complete? YES; Mean Corpuscular HGB CONC 32.8 g/dL (32.0-36.0); Mean Corpuscular Hemoglobin 37.3 pg (27.0-31.0); Mean Platelet Volume 7.6 fL (7.4-10.4); Monocytes 2 % (0-10); Neutrophil 81 % (42-75); PLT Morphology Comment Appears Decreased; Platelet Count 123 thou/uL (130-400); RBC Distribution Width 12.8 % (11.5-14.5); Red Blood Cell (RBC) Count 2.74 mill/uL (4.70-6.10)
--- NOTE | 2017-05-08 16:52 | EKG ---
Test Reason : Blood Pressure : / mmHG Vent. Rate : 068 BPM Atrial Rate : 068 BPM P-R Int : 160 ms QRS Dur : 092 ms QT Int : 458 ms P-R-T Axes : 031 031 010 degrees QTc Int : 487 ms Normal sinus rhythm Prolonged QT Nonspecific ST-T changes Abnormal ECG When compared with ECG of 18-FEB-2017 13:12, Inverted T waves have replaced nonspecific T wave abnormality in Inferior leads Confirmed by DR. Marta DRIVER ([id number]) on 05/08/2017 4:51:46 PM Referred By: JOE Confirmed By:DR. Marta DRIVER
== END 2017-05-08 11:16 | disposition home or self-care (01) ==
LOC: LABBT 11:15
PROVIDERS: ATTEND Specialist
DX: Z01.818 Encounter for other preprocedural examination (principal); K70.31 Alcoholic cirrhosis of liver with ascites
CPT/HCPCS: 80053; 80076; 85025; 85610; 85730; 93005; 93010

== ENCOUNTER 2017-05-12 07:38 | Day surgery (SDC) | payer OTHER ==
[2017-05-08 11:39] VITALS: BMI 27.4
--- NOTE | 2017-05-09 11:34 | HP ---
HISTORY OF PRESENT ILLNESS: Mr. Justus Bosch is a 47-year-old male patient presents with a symptoma tic umbilical hernia. He has been referred by Dr. Morataya for repair. His hernia has been increasing in size. He has a history of alcoholism with alcohol cessation in 02/2017. Dr. Morataya has advised daniella valderrama to quit drinking. His viral hepatitis screen has been negative. He has been diagnosed with alcoho lic liver disease. He undergoes q.6 week paracentesis of 5 liters. He smokes 5-6 cigarettes a day. Plan is to repair his umbilical hernia, possibly using mesh. He understands the risk of ascites jose roberto k, bleeding and infection and his skin is thinning out, we will repair this before it becomes a probl em. He states he has quit drinking alcohol completely. ALLERGIES: None. TOBACCO: 5-6 cigarettes a day. ALCOHOL: None since 02/2017. PAST SURGICAL HISTORY: Noncontributory. PAST MEDICAL HISTORY: Noncontributory. 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 MEDICATIONS: Lactulose 10 mg a day, amlodipine 5 mg a day, spironolactone 25 mg 2 tablets in the mor chad, Lasix 20 mg a day. REVIEW OF SYSTEMS: Ten point noncontributory. PHYSICAL EXAMINATION: VITAL SIGNS: 130/69, 85, 98.8 degrees. HEENT: Unremarkable. LUNGS: Clear to auscultation. CARDIAC: Regular rate and rhythm without murmur or gallop. ABDOMEN: Soft and slightly distended. Positive fluid wave, large reducible umbilical hernia with a 1.5 to 2 cm defect. EXTREMITIES: Unremarkable. No ankle edema. ASSESSMENT AND PLAN: 1. Umbilical hernia. Plan repair. Risks and benefits as noted above. 2. Alcohol liver disease, alcohol cessation, on maximal medical therapy and serial paracentesis. 3. Tobacco use.
[2017-05-12] MEDS ORDERED: Levofloxacin 500 mg/D5W 100 ml Premix Bag ONE (08:19)
[2017-05-12] MEDS ORDERED: Ketorolac Tromethamine 30 MG/ML VIAL ONE (08:19)
[2017-05-12] MEDS ORDERED: Bupivacaine HCl 0.5%/Epinephrine 1:200,000/PF 30 ml Vial ONE (08:39)
[2017-05-12] MEDS ORDERED: Fentanyl 250 MCG/5 ML VIAL ONE (08:43)
--- NOTE | 2017-05-12 11:32 | OP ---
DATE OF PROCEDURE: 05/12/2017 PREOPERATIVE DIAGNOSES: Umbilical hernia with thinned out skin, alcoholic liver injury disease requi ring paracentesis every week and a half. Alcohol cessation on medical therapy followed by Gastroente rology. POSTOPERATIVE DIAGNOSES: Umbilical hernia with thinned out skin, alcoholic liver injury disease requ iring paracentesis every week and a half. Alcohol cessation, on medical therapy followed by Gastroen terology. PROCEDURE: Repair of umbilical hernia without mesh with evacuation of 6 liters 30 mL ascites fluid, clear yellow. SURGEON: Dr. Arthur Barroso. ANESTHESIA: General. PROCEDURE: The patient was taken to the operating room where under general anesthesia, the abdomen w as prepared with ChloraPrep in routine fashion. Infraumbilical skin incision might get subcutaneous tissue, transected the hernia sac, not dissecting the hernia sac free from the umbilicus so that it w ould not thinned out the skin. Hernia sac dissected free from the fascia excised, but portion of lef t on the skin as described during the process 6030 mL fluid ascites evacuated. Fascia approximated p [id number] type fashion with interrupted 0 PDS pop offs. Umbilicus fastened to the fascia with f [id number] suture of 3-0 Monocryl. The subcutaneous tissues approximated with continuous suture of 3-0 Monocryl, the skin with continuous subcuticular 4-0 Monocryl and local anesthetic infiltrated into the skin and subcutaneous tissue for postoperative pain control. The patient tolerated the proc edure well.
[2017-05-12] MEDS ORDERED: Ondansetron HCl/PF 4 MG/2 ML Vial ONE (17:08)
[2017-05-12] MEDS ORDERED: Glycopyrrolate 0.2 MG/ML 5 ML SYRINGE ONE (17:08)
[2017-05-12] MEDS ORDERED: Propofol 200 MG/20 ML VIAL ONE (17:08)
[2017-05-12] MEDS ORDERED: Lidocaine 1% PF 5 ML VIAL ONE (17:08)
== END 2017-05-12 12:50 | disposition home or self-care (01) ==
LOC: SDC 07:38
PROVIDERS: ATTEND Specialist
PROC: 0WQF0ZZ Repair Abdominal Wall, Open Approach (ICD-10-PCS; principal; 2017-05-12)
DX: K42.9 Umbilical hernia without obstruction or gangrene (principal); K70.9 Alcoholic liver disease, unspecified; R18.8 Other ascites; F17.210 Nicotine dependence, cigarettes, uncomplicated; Z79.899 Other long term (current) drug therapy; Z71.41 Alcohol abuse counseling and surveillance of alcoholic
CPT/HCPCS: J0131; J0670; J1885; J1956; J2001; J2405; J2704; J3010

== ENCOUNTER 2017-05-29 12:27 | Outpatient (CLI) | payer OTHER ==
[2017-05-29 14:06] LABS: #Basophils 0.1 thou/uL (0.0-0.2); #Eosinphils 1.2 thou/uL (0.0-0.7); #Lymphocytes 2.1 thou/uL (1.20-3.40); #Neutrophils 2.5 thou/uL (1.40-6.50); %Basophils 1.8 % (0.0-1.0); %Eosinophils 17.7 % (0.0-10.0); %Lymphocytes 29.9 % (21.0-51.0); %Monocytes 13.7 % (0.0-10.0); %Neutrophils 36.8 % (42.0-75.0); Hemoglobin 10.7 g/dL (14.0-18.0); Mean Corpuscular HGB CONC 33.8 g/dL (32.0-36.0); Mean Corpuscular Hemoglobin 38.2 pg (27.0-31.0); Mean Platelet Volume 7.3 fL (7.4-10.4); Platelet Count 106 thou/uL (130-400); RBC Distribution Width 12.8 % (11.5-14.5); Red Blood Cell (RBC) Count 2.81 mill/uL (4.70-6.10); White Blood Cell (WBC) Count 6.9 thou/uL (4.8-10.8)
[2017-05-29 14:27] LABS: Anion Gap 9 mmol/L (10-20); BUN (Urea Nitrogen) 6 mg/dL (8.9-20.6); Calc. Creatinine Clearance 0 mL/min (70-130); Calcium 8.3 mg/dL (7.8-10.44); Carbon Dioxide 23 mmol/L (22-29); Chloride 106 mmol/L (98-107); Estimated GFR-MDRD Greater than 90; Glucose 81 mg/dL (70-105); Potassium 3.7 mmol/L (3.5-5.1); Sodium 134 mmol/L (136-145)
== END 2017-05-29 12:28 | disposition home or self-care (01) ==
LOC: LABBT 12:27
PROVIDERS: ATTEND Specialist
DX: Z01.812 Encounter for preprocedural laboratory examination (principal); K40.90 Unilateral inguinal hernia, without obstruction or gangrene, not specified as recurrent
CPT/HCPCS: 80048; 85025

== ENCOUNTER 2017-05-30 08:47 | Day surgery (SDC) | payer OTHER ==
[2017-05-29 12:29] VITALS: BMI 26.9
[2017-05-30] MEDS ORDERED: Ketorolac Tromethamine 30 MG/ML VIAL ONE (09:02)
[2017-05-30] MEDS ORDERED: Midazolam HCl 2 mg/2 ml Vial ONE (09:03)
[2017-05-30] MEDS ORDERED: Fentanyl 250 MCG/5 ML VIAL ONE (09:03)
[2017-05-30] MEDS ORDERED: Levofloxacin 500 mg/D5W 100 ml Premix Bag ONE (09:03)
[2017-05-30] MEDS ORDERED: [UNRECOGNIZED DRUG - REMARK] ONE (09:06)
[2017-05-30] MEDS ORDERED: Bupivacaine HCl 0.5%/Epinephrine 1:200,000/PF 30 ml Vial ONE (09:06)
[2017-05-30] MEDS ORDERED: Bacitracin Zinc Ointment 30 gm TUBE ONE (10:04)
--- NOTE | 2017-05-30 10:49 | OP ---
DATE OF PROCEDURE: 05/30/2017 PREOPERATIVE DIAGNOSES: 1. Right inguinal hernia repair. 2. Alcoholic cirrhosis. 3. Recent history of umbilical hernia repair. POSTOPERATIVE DIAGNOSES: 1. Right inguinal hernia repair. 2. Alcoholic cirrhosis. 3. Recent history of umbilical hernia repair. PROCEDURE: PHS mesh repair of indirect right inguinal hernia with evacuation of 6.1 liters of ascite s fluid. SURGEON: Dr. Arthur Barroso ANESTHESIA: General. Local 0.5% Marcaine with epinephrine, 30 mL, mixed with 2% Xylocaine, 10 mL to pina volume mixture used. PROCEDURE: The patient was taken to the operating room under general anesthesia, abdomen was clipped of hair, prepared with ChloraPrep, draped in routine fashion. Ioban was used. Local anesthetic inf iltrated in the skin seems tissue about the operative site. Incision made and right groin carried do wn skin and subcutaneous tissue to the external oblique incised in the direction of its fibers to the external ring. Cord structure dissected free and surrounded with a Hetal drain ankle. Hernia sac dissected free, freed open and 6.1 liters of ascites fluid evacuated. It was straw yellow. High li gation of hernia sac performed under direct visualization with a pursestring suture of 0 Nurolon sutu re. The stump of the hernia sac mesh was secured underlay with interrupted suture of 0 Nurolon. Und erlay portion of the mesh placed in the preperitoneal space. Onlay portion placed in the floor of th e canal, making a slit in the mesh laterally to the cylindrical connecting ring, bringing the mesh ar ound the cord structures creating a synthetic internal ring and reapproximating the mesh laterally to Poupart's ligament with interrupted suture of 0 Nurolon. Inferiorly, the mesh was secured to Cody 's ligament with 0 Nurolon suture. External oblique closed with #2 suture of 3-0 Monocryl, Camper's fascia with continuous suture of 3-0 Monocryl, skin with subdermal 4-0 Monocryl. Local anesthetic mi xture infiltrated in the space of the inguinal canal and space above and below Camper's fascia and in the subcutaneous tissues. Patient tolerated the procedure well. DermaGlue applied.
== END 2017-05-30 13:45 | disposition home or self-care (01) ==
LOC: SDC 08:47
PROVIDERS: ATTEND Specialist
PROC: 0YU50JZ Supplement Right Inguinal Region with Synthetic Substitute, Open Approach (ICD-10-PCS; principal; 2017-05-30)
DX: K40.90 Unilateral inguinal hernia, without obstruction or gangrene, not specified as recurrent (principal); K70.31 Alcoholic cirrhosis of liver with ascites; I10 Essential (primary) hypertension; F10.11 Alcohol abuse, in remission; Z79.899 Other long term (current) drug therapy; Z98.890 Other specified postprocedural states
CPT/HCPCS: C1781; J0131; J0670; J1885; J1956; J2250; J3010; J3490

== ENCOUNTER 2017-08-19 11:20 | Emergency (ER) | payer SELFPAY ==
[2017-08-19 11:45] LABS: #Basophils 0.1 thou/uL (0.0-0.2); #Eosinphils 0.8 thou/uL (0.0-0.7); #Lymphocytes 1.6 thou/uL (1.20-3.40); #Monocytes 0.8 thou/uL (0.11-0.59); #Neutrophils 4.1 thou/uL (1.40-6.50); %Eosinophils 10.3 % (0.0-10.0); %Lymphocytes 21.5 % (21.0-51.0); %Monocytes 10.9 % (0.0-10.0); %Neutrophils 56.3 % (42.0-75.0); Hemoglobin 9.9 g/dL (14.0-18.0); Mean Corpuscular HGB CONC 33.5 g/dL (32.0-36.0); Mean Corpuscular Hemoglobin 37.4 pg (27.0-31.0); Mean Platelet Volume 6.7 fL (7.4-10.4); Platelet Count 104 thou/uL (130-400); RBC Distribution Width 12.8 % (11.5-14.5); Red Blood Cell (RBC) Count 2.63 mill/uL (4.70-6.10); White Blood Cell (WBC) Count 7.3 thou/uL (4.8-10.8)
[2017-08-19 12:08] LABS: Troponin I Less than 0.010 ng/mL (< 0.028)
[2017-08-19 12:11] LABS: MDiff Complete? YES; Macrocytosis MODERATE=16-30 cells (100X) (0-5/hpf); PLT Morphology Comment Appears Decreased; Polychromasia MODERATE = 3-4 cells (100X) (0-2/hpf); Small Platelets SLIGHT
[2017-08-19 12:14] LABS: ALT (SGPT) 13 U/L (8-55); AST (SGOT) 31 U/L (5-34); Albumin 2.1 g/dL (3.5-5.0); Alkaline Phosphatase 101 U/L (40-150); Anion Gap 11 mmol/L (10-20); BUN (Urea Nitrogen) 9 mg/dL (8.9-20.6); Bilirubin, Direct 2.3 mg/dL (0.1-0.3); Bilirubin, Total 4.6 mg/dL (0.2-1.2); Calc. Creatinine Clearance 0 mL/min (70-130); Calcium 7.9 mg/dL (7.8-10.44); Carbon Dioxide 20 mmol/L (22-29); Chloride 106 mmol/L (98-107); Estimated GFR-MDRD Greater than 90; Glucose 85 mg/dL (70-105); Potassium 3.7 mmol/L (3.5-5.1); Protein, Total 6.1 g/dL (6.0-8.3); Sodium 133 mmol/L (136-145)
[2017-08-19] MEDS ORDERED: Lidocaine 1% w/Epinephrine 1:100K 20 ML VIAL ONE (12:52)
== END 2017-08-19 14:22 | disposition home or self-care (01) ==
LOC: ERS 11:20
DX: R18.8 Other ascites (principal); I10 Essential (primary) hypertension; K74.60 Unspecified cirrhosis of liver; F17.210 Nicotine dependence, cigarettes, uncomplicated
CPT/HCPCS: 36415; 80053; 80076; 82553; 84484; 85025; 99284; J2001

== ENCOUNTER 2017-09-22 14:29 | Day surgery (SDC) | payer OTHER ==
[2017-09-22] MEDS ORDERED: Albumin 25% 25 GM/100 ML BOT IVPB PRN (14:45)
[2017-09-22] MEDS ORDERED: Sodium Chloride 0.9% 20 ML ONE (14:55)
[2017-09-22 14:59] VITALS: BP 134/66; TEMP 98.7
== END 2017-09-22 16:00 | disposition home or self-care (01) ==
LOC: ONC/OP 14:29
PROVIDERS: ATTEND Specialist
DX: K70.31 Alcoholic cirrhosis of liver with ascites (principal)
CPT/HCPCS: 96365; A4216; P9047

== ENCOUNTER 2017-10-06 12:59 | Day surgery (SDC) | payer OTHER ==
[2017-10-06] MEDS ORDERED: Albumin 25% 25 GM/100 ML BOT IVPB SCH (13:15)
[2017-10-06] MEDS ORDERED: Sodium Chloride 0.9% 10 ML ONE (13:33)
[2017-10-06 13:44] VITALS: BP 103/51; TEMP 98.5
== END 2017-10-06 14:22 | disposition home or self-care (01) ==
LOC: ONC/OP 12:59
PROVIDERS: ATTEND Physical Medicine & Rehabilitation
DX: K70.31 Alcoholic cirrhosis of liver with ascites (principal)
CPT/HCPCS: 96365; A4216; P9047

== ENCOUNTER 2017-10-20 14:27 | Day surgery (SDC) | payer OTHER ==
[2017-10-20] MEDS ORDERED: Albumin 25% 25 GM/100 ML BOT IVPB SCH (14:45)
[2017-10-20] MEDS ORDERED: Sodium Chloride 0.9% 20 ML ONE (14:48)
[2017-10-20 15:13] VITALS: BP 117/57; TEMP 98.3
== END 2017-10-20 16:15 | disposition home or self-care (01) ==
LOC: ONC/OP 14:27
PROVIDERS: ATTEND Physical Medicine & Rehabilitation
DX: K70.31 Alcoholic cirrhosis of liver with ascites (principal)
CPT/HCPCS: 96365; A4216; P9047

== ENCOUNTER 2017-11-05 12:38 | Day surgery (SDC) | payer OTHER ==
[2017-11-05] MEDS ORDERED: Albumin 25% 25 GM/100 ML BOT IVPB SCH (13:00)
[2017-11-05] MEDS ORDERED: Sodium Chloride 0.9% 20 ML ONE (13:02)
[2017-11-05 14:54] VITALS: BP 119/87; TEMP 98.4
== END 2017-11-05 17:03 | disposition home or self-care (01) ==
LOC: ONC/OP 12:38
PROVIDERS: ATTEND Physical Medicine & Rehabilitation
DX: K70.31 Alcoholic cirrhosis of liver with ascites (principal)
CPT/HCPCS: 96365; A4216; P9047

== ENCOUNTER 2017-11-17 14:34 | Day surgery (SDC) | payer OTHER ==
[2017-11-17] MEDS ORDERED: Sodium Chloride 0.9% 20 ML ONE (14:37)
[2017-11-17] MEDS ORDERED: Albumin 25% 25 GM/100 ML BOT IVPB SCH (15:00)
[2017-11-17 16:02] VITALS: BP 124/56; TEMP 99.5
== END 2017-11-17 16:04 | disposition home or self-care (01) ==
LOC: ONC/OP 14:34
PROVIDERS: ATTEND Physical Medicine & Rehabilitation
DX: K70.31 Alcoholic cirrhosis of liver with ascites (principal); Z79.899 Other long term (current) drug therapy
CPT/HCPCS: 96365; A4216; P9047

== ENCOUNTER → 2017-12-01 | Day surgery (SDC) | payer OTHER ==
[~2017-12-01] MED LIST: Albumin 25% 25 GM/100 ML BOT IVPB SCH
== END ==
LOC: ONC/OP 14:44
PROVIDERS: ATTEND Physical Medicine & Rehabilitation
DX: K70.31 Alcoholic cirrhosis of liver with ascites (principal)
CPT/HCPCS: 96365

== ENCOUNTER 2017-12-15 14:18 | Day surgery (SDC) | payer OTHER, SELFPAY ==
[2017-12-15] MEDS ORDERED: Sodium Chloride 0.9% 20 ML ONE (14:26)
[2017-12-15] MEDS ORDERED: Albumin 25% 25 GM/100 ML BOT IVPB SCH (14:30)
[2017-12-15 16:02] VITALS: BP 115/55
== END 2017-12-15 17:00 | disposition home or self-care (01) ==
LOC: ONC/OP 14:18
PROVIDERS: ATTEND Physical Medicine & Rehabilitation
DX: K70.31 Alcoholic cirrhosis of liver with ascites (principal)
CPT/HCPCS: 96365; A4216; J1642

== ENCOUNTER 2017-12-29 14:29 | Day surgery (SDC) | payer OTHER ==
[2017-12-29] MEDS ORDERED: Sodium Chloride 0.9% 20 ML ONE (14:38)
[2017-12-29 14:42] VITALS: BP 133/60; TEMP 98
[2017-12-29] MEDS ORDERED: Albumin 25% 25 GM/100 ML BOT IVPB SCH (14:45)
== END 2017-12-29 16:02 | disposition home or self-care (01) ==
LOC: ONC/OP 14:29
PROVIDERS: ATTEND Physical Medicine & Rehabilitation
DX: K70.31 Alcoholic cirrhosis of liver with ascites (principal)
CPT/HCPCS: 96365; P9047

== ENCOUNTER 2018-01-12 14:39 | Day surgery (SDC) | payer OTHER ==
[2018-01-12] MEDS ORDERED: Albumin 25% 25 GM/100 ML BOT IVPB SCH (15:15)
[2018-01-12 16:09] VITALS: BP 130/60; TEMP 98.2
== END 2018-01-12 17:02 | disposition home or self-care (01) ==
LOC: ONC/OP 14:39
PROVIDERS: ATTEND Physical Medicine & Rehabilitation
DX: K70.31 Alcoholic cirrhosis of liver with ascites (principal)
CPT/HCPCS: 96365; P9047

== ENCOUNTER 2018-01-26 14:21 | Day surgery (SDC) | payer OTHER, SELFPAY ==
[2018-01-26] MEDS ORDERED: Sodium Chloride 0.9% 10 ML ONE (14:32)
[2018-01-26] MEDS ORDERED: Albumin 25% 25 GM/100 ML BOT IVPB SCH (15:15)
== END 2018-01-26 15:55 | disposition home or self-care (01) ==
LOC: ONC/OP 14:21
PROVIDERS: ATTEND Physical Medicine & Rehabilitation
DX: K70.31 Alcoholic cirrhosis of liver with ascites (principal)
CPT/HCPCS: 96365; P9047

== ENCOUNTER 2018-02-06 14:29 | Day surgery (SDC) | payer OTHER ==
[2018-02-06] MEDS ORDERED: Albumin 25% 25 GM/100 ML BOT IVPB SCH (14:45)
[2018-02-06 15:35] VITALS: BP 161/73; TEMP 99.1
== END 2018-02-06 16:53 | disposition home or self-care (01) ==
LOC: ONC/OP 14:29
PROVIDERS: ATTEND Physical Medicine & Rehabilitation
DX: K70.31 Alcoholic cirrhosis of liver with ascites (principal)
CPT/HCPCS: 96365; P9047

== ENCOUNTER 2018-02-19 15:57 | Day surgery (SDC) | payer OTHER ==
[2018-02-19] MEDS ORDERED: Sodium Chloride 0.9% 20 ML ONE (16:05)
[2018-02-19] MEDS ORDERED: Albumin 25% 25 GM/100 ML BOT IVPB SCH (16:15)
== END 2018-02-19 16:56 | disposition home or self-care (01) ==
LOC: ONC/OP 15:57
PROVIDERS: ATTEND Physical Medicine & Rehabilitation
DX: K70.31 Alcoholic cirrhosis of liver with ascites (principal); Z79.899 Other long term (current) drug therapy
CPT/HCPCS: P9047

== ENCOUNTER 2018-02-20 12:48 | Day surgery (SDC) | payer OTHER ==
[2018-02-20] MEDS ORDERED: Albumin 25% 25 GM/100 ML BOT IVPB PRN (12:54)
[2018-02-20 13:05] VITALS: BP 142/70; TEMP 98.9
== END 2018-02-20 15:19 | disposition home or self-care (01) ==
LOC: ONC/OP 12:48
PROVIDERS: ATTEND Physical Medicine & Rehabilitation
DX: K70.31 Alcoholic cirrhosis of liver with ascites (principal); Z79.899 Other long term (current) drug therapy
CPT/HCPCS: 96365; P9047

== ENCOUNTER 2018-02-26 16:17 | Day surgery (SDC) | payer OTHER ==
[2018-02-26] MEDS ORDERED: Albumin 25% 25 GM/100 ML BOT IVPB PRN (16:27)
[2018-02-26 17:15] VITALS: BP 144/67; TEMP 97.9
== END 2018-02-26 17:58 | disposition home or self-care (01) ==
LOC: ONC/OP 16:17
PROVIDERS: ATTEND Physical Medicine & Rehabilitation
DX: K70.31 Alcoholic cirrhosis of liver with ascites (principal); Z79.899 Other long term (current) drug therapy
CPT/HCPCS: 96365; P9047

== ENCOUNTER 2018-03-12 15:54 | Day surgery (SDC) | payer OTHER ==
[2018-03-12] MEDS ORDERED: Albumin 25% 25 GM/100 ML BOT IVPB SCH (16:30)
== END 2018-03-12 17:38 | disposition home or self-care (01) ==
LOC: ONC/OP 15:54
PROVIDERS: ATTEND Physical Medicine & Rehabilitation
DX: K70.31 Alcoholic cirrhosis of liver with ascites (principal)
CPT/HCPCS: 96365; J1642; P9047

== ENCOUNTER 2018-03-26 14:34 | Day surgery (SDC) | payer OTHER ==
[2018-03-26] MEDS ORDERED: Albumin 25% 25 GM/100 ML BOT IVPB PRN (14:52)
[2018-03-26] MEDS ORDERED: Sodium Chloride 0.9% 20 ML ONE (15:03)
[2018-03-26 16:10] VITALS: BP 133/61; TEMP 98.7
== END 2018-03-26 16:53 | disposition home or self-care (01) ==
LOC: ONC/OP 14:34
PROVIDERS: ATTEND Physical Medicine & Rehabilitation
DX: K70.31 Alcoholic cirrhosis of liver with ascites (principal); Z79.899 Other long term (current) drug therapy
CPT/HCPCS: 96365; P9047

== ENCOUNTER 2018-04-09 14:51 | Day surgery (SDC) | payer OTHER ==
[2018-04-09] MEDS ORDERED: Sodium Chloride 0.9% 30 ML ONE (15:52)
[2018-04-09] MEDS ORDERED: Albumin 25% 25 GM/100 ML BOT IVPB SCH (16:00)
[2018-04-09 16:08] VITALS: BP 159/72; TEMP 97.7
== END 2018-04-09 16:37 | disposition home or self-care (01) ==
LOC: ONC/OP 14:51
PROVIDERS: ATTEND Internal Medicine
DX: K70.31 Alcoholic cirrhosis of liver with ascites (principal); Z79.899 Other long term (current) drug therapy
CPT/HCPCS: 96365; P9047

== ENCOUNTER 2018-04-23 01:15 | Day surgery (SDC) | payer OTHER ==
[2018-04-23] MEDS ORDERED: Albumin 25% 25 GM/100 ML BOT IVPB SCH (06:00)
[2018-04-23] MEDS ORDERED: Sodium Chloride 0.9% 20 ML ONE (08:03)
[2018-04-23 15:40] VITALS: BP 108/53; TEMP 98.5
== END 2018-04-23 16:06 | disposition home or self-care (01) ==
LOC: ONC/OP 01:15
PROVIDERS: ATTEND Internal Medicine
DX: K70.31 Alcoholic cirrhosis of liver with ascites (principal)
CPT/HCPCS: 96365; P9047

== ENCOUNTER 2018-05-04 00:17 | Day surgery (SDC) | payer OTHER ==
[2018-05-04] MEDS ORDERED: Albumin 25% 25 GM/100 ML BOT IVPB SCH (01:45)
[2018-05-04] MEDS ORDERED: Sodium Chloride 0.9% 20 ML ONE (15:01)
[2018-05-04 15:26] VITALS: BP 144/62; TEMP 98.1
== END 2018-05-04 15:46 | disposition home or self-care (01) ==
LOC: ONC/OP 00:17
PROVIDERS: ATTEND Internal Medicine
DX: K70.31 Alcoholic cirrhosis of liver with ascites (principal); Z79.899 Other long term (current) drug therapy
CPT/HCPCS: 96365; P9047